=== PATIENT | male | born 1980 | race Caucasian/White ===

== ENCOUNTER 2020-02-27 14:34 | Emergency (ER) | payer SELFPAY ==
[~2020-02-27] VITALS: Ht 167.6 cm; Wt 97.7 kg
[2020-02-27 14:37] VITALS: BP 131/91
== END 2020-02-27 14:48 | disposition left against medical advice (07) ==
LOC: EMS 14:34
DX: R05 Cough (principal); Z53.21 Procedure and treatment not carried out due to patient leaving prior to being seen by health care provider